=== PATIENT | female | born 1995 | race African-American/Black ===

== ENCOUNTER 2018-01-26 19:36 | Emergency (ER) | payer SELFPAY ==
[2018-01-26] MEDS ORDERED: predniSONE 20 MG TAB ONE (19:52)
--- NOTE | 2018-01-26 20:27 | RAD ---
TWO VIEW CHEST: History: Wheezing. Comparison: 08-31-05 FINDINGS: There is streaky infiltrate in the left midlung. This appears to be anterior on the lateral projectio n and may reside in the anterior segment of the left upper lobe. The heart and mediastinum are unremarkable. The lungs are otherwise clear. IMPRESSION: Linear infiltrate in the left lung, probably anterior. Close follow up recommended. POS: ROSSY
== END 2018-01-26 20:48 | disposition home or self-care (01) ==
LOC: ERS 19:36
DX: J18.9 Pneumonia, unspecified organism (principal); J45.909 Unspecified asthma, uncomplicated; F17.210 Nicotine dependence, cigarettes, uncomplicated
CPT/HCPCS: 71046; 99406; J7506; J7620

== ENCOUNTER 2018-10-05 02:58 | Emergency (ER) | payer SELFPAY | END 2018-10-05 03:23 | disposition home or self-care (01) | LOC: ERS 02:58 | DX: K02.9 Dental caries, unspecified (principal); Z71.6 Tobacco abuse counseling; F17.210 Nicotine dependence, cigarettes, uncomplicated | CPT/HCPCS: 99406 ==

== ENCOUNTER 2022-03-18 20:09 | Emergency (ER) | payer SELFPAY | END 2022-03-18 21:00 | disposition home or self-care (01) | LOC: ERS 20:09 | DX: M54.41 Lumbago with sciatica, right side (principal); F17.200 Nicotine dependence, unspecified, uncomplicated | CPT/HCPCS: 99283 ==

== ENCOUNTER 2023-06-20 08:56 | Outpatient (CLI) | payer MEDICAID | END 2023-06-20 08:57 | disposition home or self-care (01) | LOC: BICULT 08:56 | PROVIDERS: ATTEND Nurse Practitioner Women's Health | DX: N83.201 Unspecified ovarian cyst, right side (principal) | CPT/HCPCS: 76856 ==